=== PATIENT | male | born 1980 | race Caucasian/White ===

== ENCOUNTER 2024-01-23 05:12 | Emergency (ER) | payer SELFPAY ==
[2024-01-23 05:23] VITALS: BP 109/90
[2024-01-23 05:26] VITALS: BP 109/90
[2024-01-23] MEDS: VERSED 5 MG IM (05:31)
[2024-01-23] MEDS: ZYPREXA 10 MG IM (05:32)
--- NOTE | 2024-01-23 05:39 | ED.GENMED ---
History of Present Illness
General
Chief Complaint: Alcohol Problem
Source: patient
Exam Limitations: none
Time Seen by Provider: 01/23/24 05:23
Nursing documentation reviewed up to this point in time: agreed with
Travel History
Have you had any contact with someone who has COVID-19?: No
Do you have any symptoms of coronavirus? Fever > 100 degrees, chills, cough, shortness of breath, sore throat, loss of taste or smell, muscle aches, or headache?: No
History of Present Illness
History of Present Illness:
The patient is a 43-year-old man who reportedly was found on a porch ' locked out of his apartment'. Neighbors called police. When police arrived, patient appeared very intoxicated and asked for them to help him into the apartment. Reportedly,
the patient got extremely hostile and tried to hit police. He also complained to police of right knee pain. Patient arrives extremely agitated, threatening, screaming and cursing. Patient appears intoxicated. Patient only complains of right knee
pain
Past History
Past History
ED Past Medical History: Other
ED Past Surgical History: Orthopedic
Social History
Tobacco: Other
Alcohol: Occasional
Drug: Other
Personal: Single
Living: other
Employment: Other
Family History
Family History: Other
Review of Systems
Review of Systems
Allergies reviewed?: Yes
Unable to obtain full review of systems at this time due to: other (Patient agitated, intoxicated)
Other source history: other (Paramedics, police)
All Other Systems: Not applicable
Musculoskeletal: Reports joint pain and joint swelling
Phy Exam
Physical Exam
Physical Exam:
Physical Exam
General: Patient appears disheveled, intoxicated screaming, hostile. Atraumatic appearing face and head. Threatening to spit on people
Neck: supple. Nontender
Heart: s1/s2 regular rate and rhythm, no ecchymoses on chest or back
Lungs: no acute respiratory distress. clear bilaterally
Abdomen: Soft nontender
Neuro: alert and orientedx3. no focal neurological deficits
Skin: Mild abrasion left patellar area
Psychiatric: Hostile, agitated
Extremities: Soft tissue tenderness right anterior and lateral knee. Pelvis and hips nontender
Scores
Withdrawal Assessment of Alcohol
Withdrawal Assessment Completed?: Not applicable
Course
Orders/Labs/Results
Orders:
Orders
01/23/24 05:23
Midazolam HCl [Versed] 5 mg .ROUTE .STK-MED ONE
Midazolam HCl [Versed] 5 mg IM NOW STA
01/23/24 05:31
Olanzapine [Zyprexa] 10 mg IM NOW STA
01/23/24 05:36
Restraints - Violent As Directed
Restraint Type-: Locked-4 point/4 rails
Apply From (date): 01/23/24
Apply from (time): 05:36
Remove (date): 01/23/24
Remove (time): 09:36
01/23/24 06:21
CR Knee- Right 4 Or More View* Urgent
Comment: portable
Reason For Exam: fall
Vital Signs
Initial and Last Documented VS:
Initial Vital Signs
BP Pulse Ox
109/90 99
01/23/24 05:23 01/23/24 05:23
Last Documented Vital Signs
Temp Pulse Resp BP Pulse Ox
99.4 F 116 26 99/56 97
01/23/24 05:26 01/23/24 06:00 01/23/24 05:26 01/23/24 06:00 01/23/24 06:27
MDM/Problems Addressed
Differential Diagnosis Includes:
Right knee contusion, right knee fracture, acute alcohol intoxication, intracranial injury
MDM/Problems Addressed:
Patient presents acutely intoxicated with acute right knee pain
*Radiology
Radiology exam reviewed: preliminary read by ED provider (No acute fracture seen of right knee)
*Pulse Oximetry
Patient hypoxic: no
*EKG
Interpreted by ED Provider?: NA
*Critical Care Note
Total Time (30-74mins, 75-104mins- exclusive of procedures): Not Applicable
Update Note
Update Note:
Patient unfortunately had to be chemically and physically restrained due to severe hostility and threatening behavior.
7 AM patient is currently resting after being sedated. There is no sign of head trauma. As patient becomes more sober, we will reassess for any complaints of headache or any other areas of pain.
ED Attending Note
-
Portions of this chart may have been created with voice recognition software.� Occasional wrong word or��sound alike� substitutions may have occurred due to the inherent limitations of voice recognition software.
Discharge Plan
Departure
Patient Disposition: Home (Routine Discharge)
Date of Disposition: 01/23/24
Time of Disposition: 08:49
Patient with high blood pressure during this ER visit?: No
Condition: Good
Covid-19: Not Applicable
Discharge Problem:
Alcohol intoxication, Skin abrasion left knee, Contusion of right knee
Instructions: Alcohol Intoxication ED, Contusion
Prescriptions:
No Action
ciprofloxacin HCl [Ciloxan] 5 ML drops
1 drp OPHTHALMIC .Q4H WHILE AWAKE Qty: 5 0RF
hydrocodone-acetaminophen 5 MG/500 MG tablet
1 tab PO .Q4-6HPRN PRN (Reason: PAIN) Qty: 20 0RF
Referrals:
NONE,* [Family Provider] -
Interventions
Interventions:
*Risk Screen - Suicide Last Done: 01/23/24 05:14
*General Assessment Last Done: 01/23/24 05:14
*Neglect/Abuse Screening Last Done: 01/23/24 05:14
ED- Fall Risk Assessment Last Done: 01/23/24 08:55
*ED COVID-19 Vaccine History Last Done: 01/23/24 05:38
*Nursing Disposition Last Done: 01/23/24 08:55
ED- Neurological Assessment Last Done: 01/23/24 05:41
ED-Psychological Assessment Last Done: 01/23/24 05:41
Discharge Date and Time
Discharge Date/Time: 01/23/24 08:55
Print Language: YAKUT
[2024-01-23 06:00] VITALS: BP 99/56
== END 2024-01-23 08:55 | disposition home or self-care (01) ==
LOC: EMR 05:12
PROVIDERS: EMERGENCY PHYSICIAN Emergency Medicine
DX: F10.129 Alcohol abuse with intoxication, unspecified (principal); S80.01XA Contusion of right knee, initial encounter; S80.212A Abrasion, left knee, initial encounter; X58.XXXA Exposure to other specified factors, initial encounter; R45.5 Hostility; R45.1 Restlessness and agitation; Z65.3 Problems related to other legal circumstances
CPT/HCPCS: 99284; 96372 ×2; 73564

== ENCOUNTER 2025-06-05 11:11 | Emergency (ER) | payer SELFPAY ==
[2025-06-05 11:15] VITALS: BP 115/74
[2025-06-05 13:39] VITALS: BP 105/70
--- NOTE | 2025-06-05 14:49 | ED.GENMED ---
History of Present Illness
General
Chief Complaint: Crisis Evaluation
Source: patient and family
Exam Limitations: none
Time Seen by Provider: 06/05/25 11:51
Nursing documentation reviewed up to this point in time: agreed with
History of Present Illness
History of Present Illness:
44-year-old male presenting to the emergency department today with concerns of stress and depression has occasionally been using cocaine and does not use this daily. Denies any thoughts of harming himself or others. He claims that this is mainly
due to losing his job and having difficulty with housing.
Past History
Past History
ED Past Medical History: Other
ED Past Surgical History: Orthopedic
Social History
Tobacco: Other
Alcohol: Occasional
Drug: Other
Personal: Single
Living: other
Employment: Other
Family History
Family History: Other
Review of Systems
Review of Systems
Allergies reviewed?: Yes
All Other Systems: ROS reviewed and negative except as documented in HPI and ROS
Phy Exam
Physical Exam
Physical Exam:
GENERAL: Alert , in no apparent distress
EYE: pupils equal and reactive
NECK: Supple, no significant adenopathy.
ENT: o/p clr, mmm.
CARDIAC: Regular rate and rhythm .
LUNGS: Clear breath sounds bilaterally, no acute respiratory distress, no wheezes/rales/rhonchi
ABDOMEN: Soft, without focal tenderness, no r/g, no cvat
NEUROLOGICAL: Alert and oriented, no focal neuro deficits
SKIN: Warm and dry, skin intact.
MUSCULOSKELETAL: No edema, well perfused.
PSYCH: Normal and appropriate interaction.
Course
Orders/Labs/Results
Orders:
Orders
06/05/25 13:36
Crisis Consult Urgent
Reason for Consult: depression
Vital Signs
Initial and Last Documented VS:
Initial Vital Signs
Temp Pulse Resp BP Pulse Ox
97.5 F 61 16 115/74 98
06/05/25 11:15 06/05/25 11:15 06/05/25 11:15 06/05/25 11:15 06/05/25 11:15
Last Documented Vital Signs
Temp Pulse Resp BP Pulse Ox
97.5 F 58 16 105/70 98
06/05/25 11:15 06/05/25 13:39 06/05/25 13:39 06/05/25 13:39 06/05/25 11:15
MDM/Problems Addressed
MDM/Problems Addressed:
44-year-old male presenting to the emergency department today concerns of feeling stressed over the past few months after losing his job and potentially losing his housing. Vital signs are normal on arrival he denies any medical symptoms. Patient
spoke with crisis otherwise we will follow-up. Return precautions given.
*Pulse Oximetry
SaO2: 98
Oxygen Mode of Delivery: Room air
Patient hypoxic: no (98)
*Critical Care Note
Total Time (30-74mins, 75-104mins- exclusive of procedures): Not Applicable
ED Attending Note
-
Portions of this chart may have been created with voice recognition software.� Occasional wrong word or��sound alike� substitutions may have occurred due to the inherent limitations of voice recognition software.
Discharge Plan
Departure
Patient Disposition: Home (Routine Discharge)
Date of Disposition: 06/05/25
Time of Disposition: 14:49
Patient with high blood pressure during this ER visit?: No
Condition: Good
Covid-19: Not Applicable
Discharge Problem:
Psychiatric problem
Instructions: Depression, Adult (DC)
Prescriptions:
No Action
No Current Medications
0
Referrals:
[facility] [Outside]
[facility] [Active, Psychiatry] - Follow up in 5-7 days
NONE,* [Family Provider, Internal Medicine]
Activity Restrictions/Additional Instructions:
You came to the emergency department today with concerns of depression and stress. Here you had a reassuring physical exam and vital signs. Please follow closely as an outpatient with [facility]. Return for any worsening, new or concerning symptoms.
Interventions
Interventions:
*Risk Screen - Suicide Last Done: 06/05/25 11:12
*General Assessment Last Done: 06/05/25 11:24
*Neglect/Abuse Screening Last Done: 06/05/25 11:24
*ED- Fall Risk Assessment Last Done: 06/05/25 11:24
*ED COVID-19 Vaccine History Last Done: 06/05/25 11:24
ED-Psychological Assessment Last Done: 06/05/25 11:25
Discharge Date and Time
Print Language: OMANI
[2025-06-05 16:30] VITALS: BP 121/81
== END 2025-06-05 16:35 | disposition home or self-care (01) ==
LOC: EMR 11:11
PROVIDERS: EMERGENCY PHYSICIAN Emergency Medicine
DX: F32.A Depression, unspecified (principal)
CPT/HCPCS: 99283